=== PATIENT | female | born 1990 | race Caucasian/White ===

== ENCOUNTER → 2018-02-09 17:49 | Outpatient (CLI) | payer OTHER, SELFPAY | PROVIDERS: Family Provider Family Medicine; PCP Family Medicine; Visit Provider Psychiatry & Neurology Neurology | DX: R51 Headache (principal); R20.0 Anesthesia of skin | CPT/HCPCS: 70553; A9585 ==

== ENCOUNTER → 2023-04-28 | Outpatient (CLI) | payer OTHER, SELFPAY ==
--- NOTE | 2023-04-28 10:44 | ECHOD_ITS ---
Reason For Study: HEART FAILURE, UNSPECIFIED Procedure This was a 2D Doppler, Color Flow transthoracic echocardiogram. Exam performed in department. Left Ventricle Normal LV size. Left ventricular systolic function is normal. The left ventricular ejection fraction is 60 %. Normal diastology for age. No regional wall motion abnormalities noted. Right Ventricle Normal RV size. Normal systolic function. Atria Normal left atrium. Normal right atrium. Mitral Valve Normal mitral valve. Tricuspid Valve Normal tricuspid valve. Aortic Valve Normal aortic valve. Trisinus/trileaflet aortic valve. Pulmonic Valve Normal pulmonic valve. Great Vessels Normal aortic root. The pulmonary artery is normal size. Normal inferior vena cava. Pericardium/Pleural No pericardial effusion. MMode/2D Measurements & Calculations LVIDd: 4.4 cm IVSd: 1.0 cm Ao root diam: 2.7 cm LVIDs: 2.7 cm LVPWd: 0.86 cm RVDd: 3.0 cm FS: 39.6 % LAV(MOD-sp4): 24.5 ml LVAd ap4: 30.4 cm2 LVAd ap2: 32.7 cm2 LVLd ap4: 8.8 cm LVLd ap2: 9.4 cm EDV(MOD-sp4): 86.9 ml EDV(MOD-sp2): 96.3 ml EDV(sp4-el): 89.1 ml EDV(sp2-el): 96.0 ml LVAs ap4: 17.9 cm2 LVAs ap2: 18.9 cm2 LVLs ap4: 7.6 cm LVLs ap2: 8.1 cm ESV(MOD-sp4): 36.6 ml ESV(MOD-sp2): 37.5 ml ESV(sp4-el): 35.9 ml ESV(sp2-el): 37.4 ml EF(MOD-sp4): 57.9 % EF(MOD-sp2): 61.1 % EF(sp4-el): 59.7 % SV(MOD-sp4): 50.3 ml SV(MOD-sp2): 58.8 ml SV(sp4-el): 53.2 ml LA dimension(2D): 3.3 cm LA A4 area: 10.8 cm2 RA A4 area: 12.1 cm2 TAPSE: 1.7 cm Time Measurements MV dec time: 0.24 sec Doppler Measurements & Calculations MV E max christiano: 65.7 cm/sec Lat Peak E' Christiano: 14.8 cm/sec Med Peak E' Christiano: 17.3 cm/sec MV A max christiano: 52.5 cm/sec E/E' lat: 4.5 E/E' med: 3.8 MV E/A: 1.3 MV V2 max: 68.0 cm/sec MV dec slope: 276.8 cm/sec2 Ao V2 max: 115.4 cm/sec MV max P.9 mmHg Ao max P.3 mmHg MV V2 mean: 42.3 cm/sec Ao V2 mean: 88.5 cm/sec MV mean P.82 mmHg Ao mean P.5 mmHg MV V2 VTI: 19.6 cm Ao V2 VTI: 26.9 cm AV (velocity ratio): 0.82 LV V1 max: 105.4 cm/sec PA V2 max: 92.4 cm/sec LV V1 max P.4 mmHg PA V2 mean: 65.4 cm/sec LV V1 mean P.6 mmHg LV V1 mean: 78.4 cm/sec LV V1 VTI: 22.1 cm ECHO/Echo Complete Interpretation Summary Normal LV size. Left ventricular systolic function is normal. The left ventricular ejection fraction is 60 %. Structurally normal valves. Ordering Physician: Joel Gamboa Referring Physician: Ely Brooks Performed By: Joie Multnai, RDCS, RVT
== END | disposition home or self-care (01) ==
LOC: CVS 10:43
PROVIDERS: Referring Provider Internal Medicine Cardiovascular Disease; Visit Provider Internal Medicine Cardiovascular Disease
DX: R00.2 Palpitations (principal)
CPT/HCPCS: 93306